=== PATIENT | male | born 1950 | race Caucasian/White ===

== ENCOUNTER 2024-04-01 17:04 | Emergency (ER) | payer MEDICARE, OTHER ==
--- NOTE | 2024-04-01 17:42 | ED ---
Recheck HPI - General Source: patient, RN notes reviewed Mode of arrival: ambulatory Limitations: no limitations <Clarisse Alvarado - Last Filed: 04/01/24 23:46> <Brad Longo - Last Filed: 04/02/24 00:13> <Olivia Cash - Last Filed: 04/02/24 01:13> - General Chief Complaint: Recheck/Abnormal Lab/Rx Stated Complaint: Poss clot-sent by PCP Time Seen by Provider: 04/01/24 17:20 - History of Present Illness Initial Comments: Quick Note-this is a 73-year-old male presents emergency department chief complaint with referral from his primary care provider due to abnormal findings on CT. Patient states that he had a CT completed of his chest on 03/23 for recheck of an aortic arch aneurysm. Findings reported to him that there may be a clot within the aorta. Patient denies symptoms of dizziness, lightheadedness, fatigue, dyspnea, chest pain, chest pressure, blurry or double vision. (Clarisse Alvarado) 73-year-old male presents emergency department with abnormal CT results. 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 He had a surveillance study done approximately 6 months ago to evaluate the cancer. On the scan they found that the patient had an aortic aneurysm. He went back on 23 March for a repeat scan to determine stability of the aneurysm. He states he received a call today stating that he had an abnormal CT and needed to come to the hospital. 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 Patient denies any symptoms. He has no history of cardiac disease. Has no chest pain or exertional dyspnea. Last stress test was "a long time ago". (Olivia Cash) - Related Data Allergies Allergy/AdvReac Type Severity Reaction Status Date / Time No Known Allergies Allergy Verified 04/01/24 17:12 Review of Systems ROS Other: All systems not noted in ROS Statement are negative. <Clarisse Alvarado - Last Filed: 04/01/24 23:46> ROS Other: All systems not noted in ROS Statement are negative. <Brad Longo - Last Filed: 04/02/24 00:13> ROS Other: All systems not noted in ROS Statement are negative. <Olivia Cash - Last Filed: 04/02/24 01:13> ROS Statement: Those systems with pertinent positive or pertinent negative responses have been documented in the HPI. Past Medical History Past Medical History: Cancer, Hyperlipidemia, Hypertension Additional Past Surgical History / Comment(s): vocal cord biopsy Smoking Status: Former smoker Past Alcohol Use History: Occasional Past Drug Use History: None Reported <StielerKateClarisse - Last Filed: 04/01/24 23:46> General Exam Limitations: no limitations <Stieler,Clarisse - Last Filed: 04/01/24 23:46> General appearance: alert, in no apparent distress Head exam: Present: atraumatic, normocephalic, normal inspection Eye exam: Present: normal appearance, PERRL, EOMI. Absent: scleral icterus, conjunctival injection, periorbital swelling ENT exam: Present: normal exam, mucous membranes moist Neck exam: Present: normal inspection. Absent: tenderness, meningismus, lymphadenopathy Respiratory exam: Present: normal lung sounds bilaterally. Absent: respiratory distress, wheezes, rales, rhonchi, stridor Cardiovascular Exam: Present: regular rate, normal rhythm, normal heart sounds. Absent: systolic murmur, diastolic murmur, rubs, gallop, clicks GI/Abdominal exam: Present: soft, normal bowel sounds. Absent: distended, tenderness, guarding, rebound, rigid Extremities exam: Present: normal inspection, full ROM, normal capillary refill. Absent: tenderness, pedal edema, joint swelling, calf tenderness Back exam: Present: normal inspection Neurological exam: Present: alert, oriented X3, CN II-XII intact Psychiatric exam: Present: normal affect, normal mood Skin exam: Present: warm, dry, intact, normal color. Absent: rash <Olivia Cash - Last Filed: 04/02/24 01:13> - General Exam Comments Initial Comments: Visual Physical Exam Vital signs reviewed General: Well-appearing, nontoxic, no acute distress. Head: Normocephalic, atraumatic Eyes: PERRLA, EOMI ENT: Airway patent Chest: Nonlabored breathing Skin: No visual rash, normal skin tone Neuro: Alert and oriented 3 Musculoskeletal: No gross abnormalities (Stieler,Clarisse) Course Vital Signs 04/01/24 04/02/24 17:12 00:20 Temperature 98.5 F Pulse Rate 57 L 50 L Respiratory 18 18 Rate Blood Pressure 180/83 164/81 O2 Sat by Pulse 96 95 Oximetry Medical Decision Making - Lab Data Result diagrams: 04/01/24 19:58 04/01/24 19:58 <Clarisse Alvarado - Last Filed: 04/01/24 23:46> - Lab Data Result diagrams: 04/01/24 19:58 04/01/24 19:58 <QingBrad - Last Filed: 04/02/24 00:13> - Lab Data Result diagrams: 04/01/24 19:58 04/01/24 19:58 <ShreyaOlivia Stephen - Last Filed: 04/02/24 01:13> - Medical Decision Making I completed the quick note portion of this chart signed Clarisse Alvarado PA-C (Clarisse Alvarado) Was pt. sent in by a medical professional or institution ([facility], BEE TENDER, urgent care, hospital, or fpc...) When possible be specific @ -Patient sent in by his PCP Did you speak to anyone other than the patient for history (EMS, parent, family, police, friend...)? What history was obtained from this source @ -No Did you review nursing and triage notes (agree or disagree)? Why? @ -I reviewed and agree with nursing and triage notes Were old charts reviewed (outside hosp., previous admission, EMS record, old EKG, old radiological studies, urgent care reports/EKG's, fpc records)? Report findings @ -I reviewed CT read from [facility] completed 03/23 - demonstrated mural thrombus Differential Diagnosis (chest pain, altered mental status, abdominal pain women, abdominal pain men, vaginal bleeding, weakness, fever, dyspnea, syncope, headache, dizziness, GI bleed, back pain, seizure, CVA, palpatations, mental health, musculoskeletal)? @ -mural thrombus, dissection, coronary disease EKG interpreted by me (3pts min.). @ -Demonstrates sinus bradycardia with a rate of 54. TX interval 223. QRS 109. QTc of 434. Q wave in lead III. No acute ST segment elevation X-rays interpreted by me (1pt min.). @ -None done CT interpreted by me (1pt min.). @ -Pending at this time U/S interpreted by me (1pt. min.). @ -None done What testing was considered but not performed or refused? (CT, X-rays, U/S, labs)? Why? @ -None What meds were considered but not given or refused? Why? @ -None Did you discuss the management of the patient with other professionals (professionals i.e. Dr., PA, BEE TENDER, lab, RT, psych nurse, social media content manager, wood heel fitter machine, teacher, staff combat information center officer, outsole caser)? Give summary @ -Spoke with Dr. Longo who will follow CT and dispo patient Was smoking cessation discussed for >3mins.? @ -No Was critical care preformed (if so, how long)? @ -No Were there social determinants of health that impacted care today? How? (Homelessness, low income, unemployed, alcoholism, drug addiction, transportation, low edu. Level, literacy, decrease access to med. care, senior living, rehab)? @ -No Was there de-escalation of care discussed even if they declined (Discuss DNR or withdrawal of care, Hospice)? DNR status @ -No What co-morbidities impacted this encounter? (DM, HTN, Smoking, COPD, CAD, Cancer, CVA, ARF, Chemo, Hep., AIDS, mental health diagnosis, sleep apnea, mor bid obesity)? @ -None Was patient admitted / discharged? Hospital course, mention meds given and ro rampart, prescriptions, significant lab abnormalities, going to OR and other pertinent info. @ -Upon arrival patient seen and evaluated in hallway 10. Thorough history and physical exam was performed. I did recommend repeating CT so that way I can see the images. Laboratory studies are conducted and are normal. CT is pending at this time due to long radiology wait. Patient will be signed out to Dr. Longo awaiting report Undiagnosed new problem with uncertain prognosis? @ -Yes Drug Therapy requiring intensive monitoring for toxicity (Heparin, Nitro, Insulin, Cardizem)? @ -No Were any procedures done? @ -No Diagnosis/symptom? @ -Suspected acute mural thrombus aorta Acute, or Chronic, or Acute on Chronic? @ -Acute Uncomplicated (without systemic symptoms) or Complicated (systemic symptoms)? @ -Complicated Side effects of treatment? @ -No Exacerbation, Progression, or Severe Exacerbation? @ -No Poses a threat to life or bodily function? How? (Chest pain, USA, VA, pneumonia, PE, COPD, DKA, ARF, appy, cholecystitis, CVA, Diverticulitis, Homicidal, Suicidal, threat to staff... and all critical care pts) @ -Yes (Olivia Cash) - Lab Data Lab Results 04/01/24 04/01/24 04/01/24 Range/Units 19:58 19:58 19:58 WBC 6.5 (3.8-10.6) k/uL RBC 5.44 (4.30-5.90) m/uL Hgb 16.4 (13.0-17.5) gm/dL Hct 49.6 (39.0-53.0) % MCV 91.0 (80.0-100.0) fL MCH 30.1 (25.0-35.0) pg MCHC 33.1 (31.0-37.0) g/dL RDW 13.8 (11.5-15.5) % Plt Count 269 (150-450) k/uL MPV 7.2 Neutrophils % 58 % Lymphocytes % 27 % Monocytes % 7 % Eosinophils % 4 % Basophils % 1 % Neutrophils # 3.8 (1.3-7.7) k/uL Lymphocytes # 1.7 (1.0-4.8) k/uL Monocytes # 0.4 (0-1.0) k/uL Eosinophils # 0.3 (0-0.7) k/uL Basophils # 0.1 (0-0.2) k/uL PT 10.4 (10.0-12.5) sec INR 0.9 (<1.2) APTT 24.6 (22.0-30.0) sec Sodium 138 (137-145) mmol/L Potassium 3.6 (3.5-5.1) mmol/L Chloride 106 (98-107) mmol/L Carbon Dioxide 25 (22-30) mmol/L Anion Gap 7 mmol/L BUN 17 (9-20) mg/dL Creatinine 0.97 (0.66-1.25) mg/dL Est GFR (CKD-EPI)AfAm 89 (>60 ml/min/1.73 sqM) Est GFR (CKD-EPI)NonAf 77 (>60 ml/min/1.73 sqM) Glucose 87 (74-99) mg/dL Calcium 9.6 (8.4-10.2) mg/dL Magnesium 2.0 (1.6-2.3) mg/dL Total Bilirubin 0.8 (0.2-1.3) mg/dL AST 27 (17-59) U/L ALT 24 (4-49) U/L Alkaline Phosphatase 57 (38-126) U/L Total Protein 7.1 (6.3-8.2) g/dL Albumin 4.6 (3.5-5.0) g/dL Disposition <Clarisse Alvarado - Last Filed: 04/01/24 23:46> Is patient prescribed a controlled substance at d/c from ED?: No <Brad Longo - Last Filed: 04/02/24 00:13> <Olivia Cash - Last Filed: 04/02/24 01:13> Clinical Impression: Thoracic aortic aneurysm Disposition: HOME SELF-CARE Condition: Fair Instructions (If sedation given, give patient instructions): Thoracic Aortic Aneurysm (ED) Referrals: Nonstaff,Physician [Primary Care Provider] - 1-2 days Trevor Kwon MD [STAFF PHYSICIAN] - 1-2 days
[2024-04-01 17:49] VITALS: RESP 18; TEMP 98.5
[2024-04-01 20:07] LABS: Basophils # (A) 0.1 k/uL (0-0.2); Basophils % (A) 1 %; Eosinophils # (A) 0.3 k/uL (0-0.7); Eosinophils % (A) 4 %; HCT 49.6 % (39.0-53.0); HGB 16.4 gm/dL (13.0-17.5); Lymphocytes # (A) 1.7 k/uL (1.0-4.8); Lymphocytes % (A) 27 %; MCH 30.1 pg (25.0-35.0); MCHC 33.1 g/dL (31.0-37.0); Mean Platelet Volume 7.2; Monocytes # (A) 0.4 k/uL (0-1.0); Monocytes % (A) 7 %; Neutrophils # (A) 3.8 k/uL (1.3-7.7); Neutrophils % (A) 58 %; Platelet Count 269 k/uL (150-450); RBC 5.44 m/uL (4.30-5.90); RDW 13.8 % (11.5-15.5); WBC 6.5 k/uL (3.8-10.6)
[2024-04-01 20:15] LABS: INR 0.9 (<1.2); Partial Thromboplastin Time 24.6 sec (22.0-30.0); Prothrombin Time 10.4 sec (10.0-12.5)
[2024-04-01 20:17] LABS: ALT 24 U/L (4-49); AST 27 U/L (17-59); African American GFR (CKD) 89 (>60 ml/min/1.73 sqM); Albumin 4.6 g/dL (3.5-5.0); Alkaline Phosphatase 57 U/L (38-126); Anion Gap 7 mmol/L; Blood Urea Nitrogen 17 mg/dL (9-20); Calcium 9.6 mg/dL (8.4-10.2); Carbon Dioxide 25 mmol/L (22-30); Chloride 106 mmol/L (98-107); Glucose 87 mg/dL (74-99); Non-African American GFR(CKD) 77 (>60 ml/min/1.73 sqM); Potassium 3.6 mmol/L (3.5-5.1); Sodium 138 mmol/L (137-145); Total Bilirubin 0.8 mg/dL (0.2-1.3); Total Protein 7.1 g/dL (6.3-8.2)
--- NOTE | 2024-04-02 00:01 | CT ---
EXAMINATION TYPE: CT angio chest CT DLP: 1150.2 mGycm, Automated exposure control for dose reduction was used. DATE OF EXAM: 04/01/2024 8:45 PM COMPARISON: CT angiogram chest 03/23/2024 CLINICAL INDICATION:Male, 73 years old with history of aortic thrombus; Aortic thrombus. TECHNIQUE/CONTRAST: CTA scan of the thorax is performed with IV Contrast, patient injected with 100 mL of Isovue 370, MIP images are created and reviewed these are created on a separate workstation.. FINDINGS: There is adequate contrast bolus and timing. Aorta appears unchanged. Ascending aorta 3.4 cm, ectasia along the arch 2.7 cm, descending 2.7 cm. De scending is mildly tortuous. There is again a mildly bulbous appearance along the undersurface of the distal arch at its atelectatic segment which contains a small amount of thrombus and some peripheral calcification, unchanged and compatible with thrombosed calcified ductus diverticulum. There is a co nventional 3 vessel branch pattern from the arch without significant luminal narrowing. Atherosclerot ic disease causes mild stenosis at the origin of the right subclavian artery At the level of the hiat us 2.4 cm, visualized infrarenal 1.9 cm. There is moderate mixed plaque of the upper abdominal aorta with mild to moderate stenosis of the proximal celiac and mild stenosis of proximal superior enteric arteries. Moderate stenosis of proximal left renal artery, moderate to severe stenosis of the proxima l right renal artery. No dissection flap is seen. Pulmonary arteries appear to enhance normally, without evidence of filling defects to suggest PE. The pulmonary trunk is 2.7 cm, considered within normal limits. Redemonstration moderate mediastinal lipomatosis. Esophagus is stable. No mediastinal adenopathy or h ematoma. [id number] coronary artery calcifications are suggested, also on the left. There is no pericardial effusion. The central airways are patent. I see no acute soft tissue abnormality of the chest wall. Mild degenerative disc disease changes thro ughout the dorsal spine without evidence of an acute bony abnormality. IMPRESSION: 1. Overall stable CTA findings compared to the recent prior study. An acute abnormality is not obse rved. See above for details. 2. Otherwise stable exam.
[2024-04-02 01:08] VITALS: BP 164/81; PULSE 50
== END 2024-04-02 00:29 | disposition home or self-care (01) ==
LOC: EC 17:04
DX: I71.22 Aneurysm of the aortic arch, without rupture (principal); Z87.891 Personal history of nicotine dependence
CPT/HCPCS: 36415; 93005; 80053; 83735; 85025; 85610; 85730; 71275; 99284; Q9967